=== PATIENT | male | born 1985 | race Caucasian/White ===

== ENCOUNTER 2020-02-29 23:03 | Emergency (ER) | payer MEDICAID ==
[2020-02-29] MEDS ORDERED: Sodium Chloride 0.9% 2,000 ML IV ONE (23:32)
--- NOTE | 2020-02-29 23:32 | EDM.PDOC ---
ED HPI GENERAL MEDICAL PROBLEM - General Chief Complaint: Diabetic Complaint Stated Complaint: DIABETIC, HIGH BLOOD SUGAR Time Seen by Provider: 02/29/20 23:04 - History of Present Illness INITIAL COMMENTS - FREE TEXT/NARRATIVE: HISTORY AND PHYSICAL: History of present illness: This 34-year-old male with past medical history of diabetes mellitus, obesity presents emergency department not taking his metformin for several weeks. He moved here from [place] and has not established primary care. He feels very weak and is having a high heart rate. He denies any fever but he does have a cough. No urinary symptoms other than polyuria. He does have polydipsia and polyphagia. He feels like it is hard to catch his breath at times and has to breathe quickly. He denies any other associated signs or symptoms. No other mo difying, aggravating or alleviating factors. Review of systems: A 10-point review of systems, other than pertinent positives and negatives as stated per HPI, is otherwise negative. Past medical history: As per history of present illness and as reviewed below otherwise noncontributory. Surgical history: As per history of present illness and as reviewed below otherwise noncontributory. Social history: No reported history of drug or alcohol abuse. Family history: As per history of present illness and as reviewed below otherwise noncontributory. Physical exam: VITAL SIGNS: Reviewed. GENERAL: Distress. Diaphoretic. Tachycardic. HEAD: No signs of head trauma. EYES: Pupils are equal. Extraocular motions intact. EARS: Hearing grossly intact. MOUTH: Oropharynx is normal. NECK: No adenopathy, no JVD. CHEST: Chest with clear breath sounds bilaterally. No wheezes, rales, or rhonchi. CARDIAC: Great. Regular rhythm. S1-S2 are present. No murmurs gallops or rubs. VASCULAR: Peripheral pulses normal and equal in all extremities. ABDOMEN: Soft, without detectable tenderness. No sign of distention. No rebound or guarding, and no masses palpated. MUSCULOSKELETAL: Good range of motion of all major joints. Extremities without clubbing, cyanosis or edema. NEUROLOGIC EXAM: Alert and oriented x 3. No focal sensory or motor deficits. Speech normal. Follows commands. PSYCHIATRIC: Mood normal. SKIN: No rash or lesions. Initial Differential Diagnosis & Plan: Metabolic derangement, DKA, hyperglycemia, sepsis I will provide the patient with IV fluids, check a lactate, take empiric blood cultures, chest x-ray, CBC, CMP, troponin, and magnesium levels. I will give IV fluids of 2 L and reevaluate. Definitive disposition and diagnosis as appropriate pending reevaluation and review of above. - Related Data Allergies Allergy/AdvReac Type Severity Reaction Status Date / Time No Known Allergies Allergy Verified 02/29/20 23:24 Home Meds: Home Meds metFORMIN [Glucophage XR] 500 mg PO BIDMEALS 30 Days #60 tab.er 03/01/20 [Rx] Past Medical History Musculoskeletal History: Reports: SLE Endocrine/Metabolic History: Reports: Diabetes, Type II - Infectious Disease History Infectious Disease History: Reports: Chicken Pox Social & Family History - Family History Family Medical History: Noncontributory - Caffeine Use Caffeine Use: Reports: Soda - Recreational Drug Use Recreational Drug Use: No ED ROS GENERAL - Review of Systems Review Of Systems: See Below (noted) ED EXAM GENERAL NO PERIP PULSE - Physical Exam Exam: See Below (noted) EKG INTERPRETATION EKG Interpretation Comments: 12 lead EKG interpretation Obtained: February 29, 2020 at 11:43 PM Rhythm: Sinus tachycardia Rate: 113 [place]: Right axis deviation Intervals: Normal ST/T Segments: No acute ischemic changes Interpretation: Sinus tachycardia with right axis deviation Course - Vital Signs Last Recorded V/S: Last Vital Signs Temp 96.6 F L 02/29/20 23:25 Pulse 115 H 02/29/20 23:25 Resp 20 02/29/20 23:25 BP 140/93 H 02/29/20 23:25 Pulse Ox 96 02/29/20 23:25 - Orders/Labs/Meds Orders: Active Orders 24 hr Category Date Time Status EKG 12 Lead [EKG Documentation Completion] [RC] STAT Care 02/29/20 23:28 Active COMPREHENSIVE METABOLIC PN,CMP [CHEM] Stat Lab 02/29/20 23:45 Results CULTURE BLOOD [BC] Stat Lab 02/29/20 23:45 Received CULTURE BLOOD [BC] Stat Lab 02/29/20 23:58 Received DRUG SCREEN, URINE [URCHEM] Stat Lab 02/29/20 23:28 Ordered ETOH [ETHANOL BLOOD MEDICAL] [CHEM] Stat Lab 02/29/20 23:45 Results MAGNESIUM [CHEM] Stat Lab 02/29/20 23:45 Results T4 FREE [CHEM] Stat Lab 02/29/20 23:45 Results TROPONIN I [CHEM] Stat Lab 02/29/20 23:45 Results TSH [CHEM] Stat Lab 02/29/20 23:45 Results UA RFX ROD AND CULT IF INDIC [URIN] Stat Lab 02/29/20 23:28 Ordered Magnesium Sulfate/Water [Magnesium Sulfate in Water Med 03/01/20 01:00 Active Premix] 2 gm in 50 ml IV ONETIME Blood Culture x2 Reflex Set [OM.PC] Stat Oth 02/29/20 23:32 Ordered Medication Orders Magnesium Sulfate (Magnesium Sulfate In Water Premix) 2 gm in 50 mls @ 50 mls/hr IV ONETIME ONE Stop: 03/01/20 01:59 Labs: Laboratory Tests 02/29/20 02/29/20 02/29/20 Range/Units 23:22 23:45 23:45 WBC 6.77 (4.0-11.0) K/uL RBC 5.15 (4.50-5.90) M/uL Hgb 16.1 (13.0-17.0) g/dL Hct 47.5 (38.0-50.0) % MCV 92.2 (80.0-98.0) fL MCH 31.3 (27.0-32.0) pg MCHC 33.9 (31.0-37.0) g/dL RDW Std Deviation 42.2 (28.0-62.0) fl RDW Coeff of Ray 13 (11.0-15.0) % Plt Count 167 (150-400) K/uL MPV 10.40 (7.40-12.00) fL Neut % (Auto) 75.1 (48.0-80.0) % Lymph % (Auto) 18.3 (16.0-40.0) % [place] % (Auto) 5.2 (0.0-15.0) % Eos % (Auto) 1.3 (0.0-7.0) % Baso % (Auto) 0.1 (0.0-1.5) % Neut # (Auto) 5.1 (1.4-5.7) K/uL Lymph # (Auto) 1.2 (0.6-2.4) K/uL [place] # (Auto) 0.4 (0.0-0.8) K/uL Eos # (Auto) 0.1 (0.0-0.7) K/uL Baso # (Auto) 0.0 (0.0-0.1) K/uL Nucleated RBC % 0.0 /100WBC Nucleated RBCs # 0 K/uL VBG pH 7.37 (7.31-7.41) VBG pCO2 49 H (35-45) mmHG VBG pO2 37 (30-40) mmHG VBG HCO3 28 (22-30) mEq/L VBG Total CO2 25 L (41-51) mmol/L VBG Base Excess 1.9 (-3.0-3.0) Lactate (0.20-2.00) mmol/L Sodium (136-148) mmol/L Potassium (3.5-5.1) mmol/L Chloride (98-107) mmol/L Carbon Dioxide (21.0-32.0) mmol/L BUN (7.0-18.0) mg/dL Creatinine (0.8-1.3) mg/dL Est Cr Clr Drug Dosing mL/min Estimated GFR (MDRD) ml/min Glucose (74-106) mg/dL POC Glucose 378 H (60-110) mg/dL Calcium (8.5-10.1) mg/dL Magnesium (1.8-2.4) mg/dL Total Bilirubin (0.2-1.0) mg/dL ALT (14-63) IU/L Alkaline Phosphatase (46-116) U/L Troponin I (0.000-0.056) ng/mL Total Protein (6.4-8.2) g/dL Albumin (3.4-5.0) g/dL Globulin (2.6-4.0) g/dL Albumin/Globulin Ratio (0.9-1.6) Free T4 (0.76-1.46) ng/dL TSH 3rd Generation (0.36-3.74) uIU/mL Ethyl Alcohol mg/dL 02/29/20 02/29/20 Range/Units 23:45 23:45 WBC (4.0-11.0) K/uL RBC (4.50-5.90) M/uL Hgb (13.0-17.0) g/dL Hct (38.0-50.0) % MCV (80.0-98.0) fL MCH (27.0-32.0) pg MCHC (31.0-37.0) g/dL RDW Std Deviation (28.0-62.0) fl RDW Coeff of Ray (11.0-15.0) % Plt Count (150-400) K/uL MPV (7.40-12.00) fL Neut % (Auto) (48.0-80.0) % Lymph % (Auto) (16.0-40.0) % [place] % (Auto) (0.0-15.0) % Eos % (Auto) (0.0-7.0) % Baso % (Auto) (0.0-1.5) % Neut # (Auto) (1.4-5.7) K/uL Lymph # (Auto) (0.6-2.4) K/uL [place] # (Auto) (0.0-0.8) K/uL Eos # (Auto) (0.0-0.7) K/uL Baso # (Auto) (0.0-0.1) K/uL Nucleated RBC % /100WBC Nucleated RBCs # K/uL VBG pH (7.31-7.41) VBG pCO2 (35-45) mmHG VBG pO2 (30-40) mmHG VBG HCO3 (22-30) mEq/L VBG Total CO2 (41-51) mmol/L VBG Base Excess (-3.0-3.0) Lactate 1.4 (0.20-2.00) mmol/L Sodium 131 L (136-148) mmol/L Potassium 4.0 (3.5-5.1) mmol/L Chloride 96 L (98-107) mmol/L Carbon Dioxide 28.0 (21.0-32.0) mmol/L BUN 7 (7.0-18.0) mg/dL Creatinine 1.0 (0.8-1.3) mg/dL Est Cr Clr Drug Dosing 98.23 mL/min Estimated GFR (MDRD) > 60.0 ml/min Glucose 370 H (74-106) mg/dL POC Glucose (60-110) mg/dL Calcium 8.1 L (8.5-10.1) mg/dL Magnesium 1.6 L (1.8-2.4) mg/dL Total Bilirubin 0.6 (0.2-1.0) mg/dL ALT 87 H (14-63) IU/L Alkaline Phosphatase 134 H (46-116) U/L Troponin I < 0.050 (0.000-0.056) ng/mL Total Protein 7.0 (6.4-8.2) g/dL Albumin 3.5 (3.4-5.0) g/dL Globulin 3.5 (2.6-4.0) g/dL Albumin/Globulin Ratio 1.0 (0.9-1.6) Free T4 1.11 (0.76-1.46) ng/dL TSH 3rd Generation 3.64 (0.36-3.74) uIU/mL Ethyl Alcohol < 3.0 mg/dL Meds: Medications Generic Name Dose Route Start Last Admin Trade Name Freq PRN Reason Stop Dose Admin Magnesium Sulfate 2 gm in 50 mls @ 50 mls/hr 03/01/20 01:00 Magnesium Sulfate In Water Premix IV 03/01/20 01:59 ONETIME ONE Discontinued Medications Generic Name Dose Route Start Last Admin Trade Name Freq PRN Reason Stop Dose Admin Calcium Gluconate 1 gm 03/01/20 00:42 Calcium Gluconate IV 03/01/20 00:43 ONETIME ONE Sodium Chloride 2,000 mls @ 2,000 mls/hr 02/29/20 23:32 02/29/20 23:46 Normal Saline IV 03/01/20 00:31 2,000 mls/hr .BOLUS ONE Administration Ceftriaxone Sodium/Dextrose 2 50 mls @ 100 mls/hr 02/29/20 23:33 02/29/20 23:47 gm/ Premix IV 03/01/20 00:02 100 mls/hr ONETIME ONE Administration - Re-Assessments/Exams Free Text/Narrative Re-Assessment/Exam: 03/01/20 01:03 Significant improvement. Electrolytes replaced. Metformin prescribed. No DKA present. No indication of infection. Given these findings we will discharge him home with follow-up to our clinics for primary care. Patient should return if he develops fever worsening. My diagnostic impression: 1. Nonketotic hyperglycemic syndrome 2. Uncontrolled type 2 diabetes 3. Hypomagnesemia 4. Hypocalcemia 5. Dehydration The patient has clinical signs and symptoms of dehydration requiring IV hydration History (indicate if present with "X" ) x Inadequate Oral Intake _unable to take PO / persistent vomiting _needs to remain NPO due to possibility of a surgical condition x Abnormal fluid losses Physical Examination (indicate if present with "X" ) _altered Mental Status x HR >100 or elevated HR x Dry mucous membranes _appears septic Testing (indicate if present with "X" ) _elevated BUN _elevated Cr _Na >150 _elevated urine specific gravity _hemoconcentration (elevated Hgb/Hct) _elevated lactate x Elevated Glucose level Departure - Departure Time of Disposition: 01:05 Disposition: Home, Self-Care 01 Clinical Impression: Uncontrolled diabetes mellitus, Dehydration, Hypomagnesemia, Hypocalcemia - Discharge Information *PRESCRIPTION DRUG MONITORING PROGRAM REVIEWED*: Not Applicable *COPY OF PRESCRIPTION DRUG MONITORING REPORT IN PATIENT JANETH: Not Applicable Prescriptions: metFORMIN [Glucophage XR] 500 mg PO BIDMEALS 30 Days #60 tab.er Instructions: Hypomagnesemia, Hypocalcemia, Adult, Dehydration, Adult, [id number], Type 2 Diabetes Mellitus, Self Care, Adult, [id number], Preventing Diabetes Mellitus Complications, Type 2 Diabetes Mellitus, Diagnosis, Adult, [id number], Blood Glucose Monitoring, Adult, Diabetes Mellitus and Exercise Referrals: PCP,None [Primary Care Provider] - Forms: ED Department Discharge Additional Instructions: The following information is given to patients seen in the emergency department who are being discharged to home. This information is to outline your options for follow-up care. We provide all patients seen in our emergency department with a follow-up referral. The need for follow-up, as well as the timing and circumstances, are variable depending upon the specifics of your emergency department visit. If you don't have a primary care physician on staff, we will provide you with a referral. We always advise you to contact your personal physician following an emergency department visit to inform them of the circumstance of the visit and for follow-up with them and/or the need for any referrals to a consulting specialist. The emergency department will also refer you to a specialist when appropriate. This referral assures that you have the opportunity for follow-up care with a specialist. All of these measure are taken in an effort to provide you with optimal care, which includes your follow-up. Thank you for coming to the [facility] urgency department for your care today. It was Dr. Fried's pleasure to take care of you. Josefina [facility] [address] [place] [address] [facility] [address] [place] [address] He had diabetes mellitus. This was a previous diagnosis for you. Please take the metformin as prescribed. Return to emergency department if you have worsening especially fever, chest pain, shortness of breath weakness, cramps, or any other symptoms you are concerned about. Please follow-up with the clinics as you will require further care for your diabetes. You were significantly d ehydrated and required replacement of your electrolytes including magnesium and calcium. Please return for any other concerns. We are always happy to see you. Under all circumstances we always encourage you to contact your private physician who remains a resource for coordinating your care. When calling for follow-up care, please make the office aware that this follow-up is from your recent emergency room visit. If for any reason you are refused follow-up, please contact the [facility] Emergency Department at and asked to speak to the emergency department charge nurse. Sepsis Event Note (ED) - Evaluation Sepsis Screening Result: No Definite Risk - Focused Exam Vital Signs: Vital Signs Temp Pulse Resp BP Pulse Ox 02/29/20 23:25 96.6 F L 115 H 20 140/93 H 96 - My Orders Last 24 Hours: My Active Orders 02/29/20 23:28 EKG 12 Lead [EKG Documentation Completion] [RC] STAT DRUG SCREEN, URINE [URCHEM] Stat UA RFX ROD AND CULT IF INDIC [URIN] Stat 02/29/20 23:32 Blood Culture x2 Reflex Set [OM.PC] Stat 02/29/20 23:45 COMPREHENSIVE METABOLIC PN,CMP [CHEM] Stat CULTURE BLOOD [BC] Stat ETOH [ETHANOL BLOOD MEDICAL] [CHEM] Stat MAGNESIUM [CHEM] Stat T4 FREE [CHEM] Stat TROPONIN I [CHEM] Stat TSH [CHEM] Stat 02/29/20 23:58 CULTURE BLOOD [BC] Stat 03/01/20 01:00 Magnesium Sulfate/Water [Magnesium Sulfate in Water Premix] 2 gm in 50 ml IV ONETIME - Assessment/Plan Last 24 Hours: My Active Orders 02/29/20 23:28 EKG 12 Lead [EKG Documentation Completion] [RC] STAT DRUG SCREEN, URINE [URCHEM] Stat UA RFX ROD AND CULT IF INDIC [URIN] Stat 02/29/20 23:32 Blood Culture x2 Reflex Set [OM.PC] Stat 02/29/20 23:45 COMPREHENSIVE METABOLIC PN,CMP [CHEM] Stat CULTURE BLOOD [BC] Stat ETOH [ETHANOL BLOOD MEDICAL] [CHEM] Stat MAGNESIUM [CHEM] Stat T4 FREE [CHEM] Stat TROPONIN I [CHEM] Stat TSH [CHEM] Stat 02/29/20 23:58 CULTURE BLOOD [BC] Stat 03/01/20 01:00 Magnesium Sulfate/Water [Magnesium Sulfate in Water Premix] 2 gm in 50 ml IV ONETIME
[2020-02-29] MEDS ORDERED: cefTRIAXone 2 GM in Premix Bag 1 BAG IV ONE (23:33)
[2020-03-01 00:37] LABS: BLOOD UREA NITROGEN,BUN 7 mg/dL (7.0-18.0); CHLORIDE,CL 96 mmol/L (98-107); GLUCOSE RANDOM 370 mg/dL (74-106); SODIUM,NA 131 mmol/L (136-148)
[2020-03-01] MEDS ORDERED: Calcium Gluconate 10% 1 GM/10 ML SDV IV ONE (00:42)
[2020-03-01] MEDS ORDERED: Magnesium Sulfate (4.06 MEQ/ML) 5 GM/10 ML SDV IV ONE (00:43)
[2020-03-01] MEDS ORDERED: Magnesium Sulfate/Water 2 GM/50 ML BAG IV ONE (01:00)
== END 2020-03-01 02:35 | disposition home or self-care (01) ==
LOC: MW.ED 23:03
DX: E11.65 Type 2 diabetes mellitus with hyperglycemia (principal); E86.0 Dehydration; E83.42 Hypomagnesemia; E83.51 Hypocalcemia; E66.9 Obesity, unspecified; Z68.41 Body mass index [BMI] 40.0-44.9, adult; Z79.84 Long term (current) use of oral hypoglycemic drugs
CPT/HCPCS: 36415; 80053; 80305; 80307; 81003; 82803; 82962; 83605; 83735; 84439; 84443; 84484; 85025; 87040; 93005; 96361; 96365; 96367; 96375; 99285; J0610; J0696; J3475; J7030; 93010; 99283

== ENCOUNTER 2020-03-02 19:59 | Observation (INO) | payer MEDICAID, OTHER ==
[2020-03-02] MEDS ORDERED: Sodium Chloride 0.9% 1,000 ML IV ONE ×4 (20:15→23:54)
--- NOTE | 2020-03-02 20:26 | EDM.PDOC ---
ED HPI GENERAL MEDICAL PROBLEM - General Chief Complaint: Diabetic Complaint Stated Complaint: STOMACH PAIN, WEAK Time Seen by Provider: 03/02/20 20:12 Source of Information: Reports: Patient History Limitations: Reports: No Limitations - History of Present Illness INITIAL COMMENTS - FREE TEXT/NARRATIVE: HISTORY AND PHYSICAL: History of present illness: Patient is a 34-year-old male who presents to the emergency room with complaints of decreased appetite, cough, generalized abdominal pain and weakness. Patient is a type II diabetic and does take metformin on a daily basis. States over the past few days he has noticed he is unable to taste his food, has had a decreased appetite and he is concerned he is dehydrated as he does not want to eat or drink. He has noticed a dry nonproductive cough with subjective fever. States he has generalized abdominal pain although it is not tender. Patient denies any fever, chills, headache, change in vision, syncope or near syncope. Denies any chest pain, back pain, shortness of breath or cough. Denies any abdominal pain, nausea, vomiting, diarrhea, constipation or dysuria. Has not noted any blood in urine or stool. Patient has been eating and drinking appropriately. Review of systems: As per history of present illness and below otherwise all systems reviewed and negative. Past medical history: As per history of present illness and as reviewed below otherwise noncontributory. Surgical history: As per history of present illness and as reviewed below otherwise noncontributory. Social history: See social history for further information Family history: As per history of present illness and as reviewed below otherwise noncontributory. Physical exam: General: Well developed and well nourished. Alert and orientated x 3. Nontoxic in appearance and in no acute distress. Vital signs are stable and have been reviewed by me. Nursing notes were reviewed. HEENT: Atraumatic, normocephalic, pupils equal and reactive bilaterally, negative for conjunctival pallor or scleral icterus, mucous membranes moist, TMs normal bilaterally, throat clear, neck supple, nontender, trachea midline. No drooling or trismus noted. No meningeal signs. No hot potato voice noted. Lungs: Clear to auscultation, breath sounds equal bilaterally, chest nontender. Normal work of breathing, no accessory muscles used. Heart: S1S2, regular rate and rhythm without overt murmur Abdomen: Soft, nondistended, nontender. Negative for masses or hepatosplenomegaly. Negative for costovertebral tenderness. Pelvis: Stable nontender. Skin: Intact, warm, dry. No lesions or rashes noted. Hematologic: No petechiae or purpra. Mucosa appropriate color and normal nail bed color and refill. Extremities: Atraumatic, moves all extremities per self without difficulty or deficits, negative for cords or calf pain. Neurovascular unremarkable. Neuro: Awake, alert, oriented. Cranial nerves II through XII unremarkable. Cerebellum unremarkable. Motor and sensory unremarkable throughout. Exam nonfocal. Psychiatric: Mood and affect are appropriate. Normal thought process. Answering questions appropriately. Notes: Patient does appear to be slightly dehydrated, liter bolus has been given while here. He did test positive for COVID-19. He is now drinking fluids on his own without any difficulty. I did add a d-dimer as the patient is slightly tach ycardic although besides the cough has not been hypoxic or complaining of any shortness of breath/chest pain. Dr Dhillon will follow patient's CT chest, as his D.Dimer is elevated and he continues to be tachycardic. Diagnostics: CBC, CMP, chest x-ray, lactate, UA, COVID-19 Therapeutics: IV fluid Prescription: None Impression: COVID-19 Plan: Definitive disposition and diagnosis as appropriate pending reevaluation and review of above. - Related Data Allergies Allergy/AdvReac Type Severity Reaction Status Date / Time No Known Allergies Allergy Verified 03/03/20 04:17 Home Meds: Home Meds metFORMIN [Glucophage XR] 500 mg PO BIDMEALS 30 Days #60 tab.er 03/01/20 [Rx] Past Medical History Musculoskeletal History: Reports: SLE Endocrine/Metabolic History: Reports: Diabetes, Type II - Infectious Disease History Infectious Disease History: Reports: Chicken Pox Social & Family History - Family History Family Medical History: Noncontributory - Caffeine Use Caffeine Use: Reports: Soda ED ROS GENERAL - Review of Systems Review Of Systems: Comprehensive ROS is negative, except as noted in HPI. ED EXAM GENERAL NO PERIP PULSE - Physical Exam Exam: See Below (See dictation) Course - Vital Signs Last Recorded V/S: Last Vital Signs Temp 98.6 F 03/03/20 08:40 Pulse 114 H 03/03/20 08:40 Resp 16 03/03/20 08:40 BP 129/76 03/03/20 08:40 Pulse Ox 93 L 03/03/20 08:40 - Orders/Labs/Meds Orders: Active Orders 24 hr Category Date Time Status Blood Glucose Check, Bedside [] ONETIME Care 03/02/20 20:07 Active EKG Documentation Completion [RC] STAT Care 03/02/20 20:15 Active CORONAVIRUS COVID-19 PCR PHL Stat Lab 03/02/20 21:38 Ordered Medication Orders Acetaminophen (Tylenol Extra Strength) 500 mg PO Q6H PRN PRN Reason: Pain Albuterol/Ipratropium (Combivent Respimat) 0 gm INH Q4H PRN PRN Reason: Shortness of Breath Lactated Ringer's (Ringers, Lactated) 1,000 mls @ 125 mls/hr IV ASDIRECTED [facility] Last Admin: 03/03/20 10:28 Dose: 125 mls/hr Documented by: Infusion: 03/03/20 09:34 Dose: 125 mls/hr Documented by: Admin: 03/03/20 01:34 Dose: 125 mls/hr Documented by: MICHELLE Pantoprazole Sodium 40 mg/ (Sodium Chloride) 10 mls @ 300 mls/hr IV DAILY [facility] Last Admin: 03/03/20 01:33 Dose: 300 mls/hr Documented by: MICHELLE Magnesium Sulfate 4 gm/ Premix 100 mls @ 33.333 mls/hr IV ONETIME ONE Stop: 03/03/20 11:49 Last Admin: 03/03/20 09:22 Dose: 33.333 mls/hr Documented by: OSEI Insulin Aspart (Novolog) 0 unit SUBCUT TIDAC [facility]; Protocol Last Admin: 03/03/20 07:28 Dose: 6 units Documented by: MICHELLE Ondansetron HCl (Zofran) 4 mg IVPUSH Q4H PRN PRN Reason: Nausea/Vomiting Sodium Phosphate (Neutra-Phos) 250 mg PO QID [facility] Stop: 03/04/20 09:00 Labs: Laboratory Tests 03/02/20 03/02/20 03/02/20 Range/Units 20:11 20:15 20:15 WBC 6.76 (4.0-11.0) K/uL RBC 5.18 (4.50-5.90) M/uL Hgb 16.2 (13.0-17.0) g/dL Hct 47.4 (38.0-50.0) % MCV 91.5 (80.0-98.0) fL MCH 31.3 (27.0-32.0) pg MCHC 34.2 (31.0-37.0) g/dL RDW Std Deviation 42.0 (28.0-62.0) fl RDW Coeff of Ray 12 (11.0-15.0) % Plt Count 126 L (150-400) K/uL MPV 9.90 (7.40-12.00) fL Neut % (Auto) 80.8 H (48.0-80.0) % Lymph % (Auto) 14.2 L (16.0-40.0) % Bucks % (Auto) 4.6 (0.0-15.0) % Eos % (Auto) 0.3 (0.0-7.0) % Baso % (Auto) 0.1 (0.0-1.5) % Neut # (Auto) 5.5 (1.4-5.7) K/uL Lymph # (Auto) 1.0 (0.6-2.4) K/uL Bucks # (Auto) 0.3 (0.0-0.8) K/uL Eos # (Auto) 0.0 (0.0-0.7) K/uL Baso # (Auto) 0.0 (0.0-0.1) K/uL Nucleated RBC % 0.0 /100WBC Nucleated RBCs # 0 K/uL D-Dimer, Quantitative (0.0-0.50) mg/L FEU Lactate (0.20-2.00) mmol/L Sodium 131 L (136-148) mmol/L Potassium 3.9 (3.5-5.1) mmol/L Chloride 96 L (98-107) mmol/L Carbon Dioxide 26.3 (21.0-32.0) mmol/L BUN 13 (7.0-18.0) mg/dL Creatinine 1.1 (0.8-1.3) mg/dL Est Cr Clr Drug Dosing 89.30 mL/min Estimated GFR (MDRD) > 60.0 ml/min Glucose 327 H (74-106) mg/dL POC Glucose 298 H (60-110) mg/dL Hemoglobin A1c (4.5-6.2) % Calcium 8.1 L (8.5-10.1) mg/dL Total Bilirubin 0.5 (0.2-1.0) mg/dL AST 48 H (15-37) IU/L ALT 78 H (14-63) IU/L Alkaline Phosphatase 124 H (46-116) U/L Total Protein 7.2 (6.4-8.2) g/dL Albumin 3.4 (3.4-5.0) g/dL Globulin 3.8 (2.6-4.0) g/dL Albumin/Globulin Ratio 0.9 (0.9-1.6) Urine Color Urine Appearance Urine pH (5.0-8.0) Ur Specific [place] (1.001-1.035) Urine Protein (NEGATIVE) mg/dL Urine Glucose (UA) (NEGATIVE) mg/dL Urine Ketones (NEGATIVE) mg/dL Urine Occult Blood (NEGATIVE) Urine Nitrite (NEGATIVE) Urine Bilirubin (NEGATIVE) Urine Urobilinogen (<2.0) EU/dL Ur Leukocyte Esterase (NEGATIVE) Urine RBC (0-2/HPF) Urine WBC (0-5/HPF) Ur Epithelial Cells (NONE-FEW) Urine Bacteria (NEGATIVE) SARS CoV-2 RNA Rapid PEYTON (NEGATIVE) 03/02/20 03/02/20 03/02/20 Range/Units 20:15 20:15 20:28 WBC (4.0-11.0) K/uL RBC (4.50-5.90) M/uL Hgb (13.0-17.0) g/dL Hct (38.0-50.0) % MCV (80.0-98.0) fL MCH (27.0-32.0) pg MCHC (31.0-37.0) g/dL RDW Std Deviation (28.0-62.0) fl RDW Coeff of Ray (11.0-15.0) % Plt Count (150-400) K/uL MPV (7.40-12.00) fL Neut % (Auto) (48.0-80.0) % Lymph % (Auto) (16.0-40.0) % Bucks % (Auto) (0.0-15.0) % Eos % (Auto) (0.0-7.0) % Baso % (Auto) (0.0-1.5) % Neut # (Auto) (1.4-5.7) K/uL Lymph # (Auto) (0.6-2.4) K/uL Bucks # (Auto) (0.0-0.8) K/uL Eos # (Auto) (0.0-0.7) K/uL Baso # (Auto) (0.0-0.1) K/uL Nucleated RBC % /100WBC Nucleated RBCs # K/uL D-Dimer, Quantitative 0.66 H (0.0-0.50) mg/L FEU Lactate (0.20-2.00) mmol/L Sodium (136-148) mmol/L Potassium (3.5-5.1) mmol/L Chloride (98-107) mmol/L Carbon Dioxide (21.0-32.0) mmol/L BUN (7.0-18.0) mg/dL Creatinine (0.8-1.3) mg/dL Est Cr Clr Drug Dosing mL/min Estimated GFR (MDRD) ml/min Glucose (74-106) mg/dL POC Glucose (60-110) mg/dL Hemoglobin A1c 13.3 H (4.5-6.2) % Calcium (8.5-10.1) mg/dL Total Bilirubin (0.2-1.0) mg/dL AST (15-37) IU/L ALT (14-63) IU/L Alkaline Phosphatase (46-116) U/L Total Protein (6.4-8.2) g/dL Albumin (3.4-5.0) g/dL Globulin (2.6-4.0) g/dL Albumin/Globulin Ratio (0.9-1.6) Urine Color YELLOW Urine Appearance CLEAR Urine pH 5.5 (5.0-8.0) Ur Specific [place] >= 1.030 (1.001-1.035) Urine Protein 30 H (NEGATIVE) mg/dL Urine Glucose (UA) 500 H (NEGATIVE) mg/dL Urine Ketones 15 H (NEGATIVE) mg/dL Urine Occult Blood TRACE-INTACT H (NEGATIVE) Urine Nitrite NEGATIVE (NEGATIVE) Urine Bilirubin NEGATIVE (NEGATIVE) Urine Urobilinogen 0.2 (<2.0) EU/dL Ur Leukocyte Esterase NEGATIVE (NEGATIVE) Urine RBC 0-2 (0-2/HPF) Urine WBC 0-1 (0-5/HPF) Ur Epithelial Cells RARE (NONE-FEW) Urine Bacteria RARE (NEGATIVE) SARS CoV-2 RNA Rapid [place] (NEGATIVE) 03/02/20 03/02/20 Range/Units 20:30 20:49 WBC (4.0-11.0) K/uL RBC (4.50-5.90) M/uL Hgb (13.0-17.0) g/dL Hct (38.0-50.0) % MCV (80.0-98.0) fL MCH (27.0-32.0) pg MCHC (31.0-37.0) g/dL RDW Std Deviation (28.0-62.0) fl RDW Coeff of Ray (11.0-15.0) % Plt Count (150-400) K/uL MPV (7.40-12.00) fL Neut % (Auto) (48.0-80.0) % Lymph % (Auto) (16.0-40.0) % Bucks % (Auto) (0.0-15.0) % Eos % (Auto) (0.0-7.0) % Baso % (Auto) (0.0-1.5) % Neut # (Auto) (1.4-5.7) K/uL Lymph # (Auto) (0.6-2.4) K/uL Bucks # (Auto) (0.0-0.8) K/uL Eos # (Auto) (0.0-0.7) K/uL Baso # (Auto) (0.0-0.1) K/uL Nucleated RBC % /100WBC Nucleated RBCs # K/uL D-Dimer, Quantitative (0.0-0.50) mg/L FEU Lactate 1.5 (0.20-2.00) mmol/L Sodium (136-148) mmol/L Potassium (3.5-5.1) mmol/L Chloride (98-107) mmol/L Carbon Dioxide (21.0-32.0) mmol/L BUN (7.0-18.0) mg/dL Creatinine (0.8-1.3) mg/dL Est Cr Clr Drug Dosing mL/min Estimated GFR (MDRD) ml/min Glucose (74-106) mg/dL POC Glucose (60-110) mg/dL Hemoglobin A1c (4.5-6.2) % Calcium (8.5-10.1) mg/dL Total Bilirubin (0.2-1.0) mg/dL AST (15-37) IU/L ALT (14-63) IU/L Alkaline Phosphatase (46-116) U/L Total Protein (6.4-8.2) g/dL Albumin (3.4-5.0) g/dL Globulin (2.6-4.0) g/dL Albumin/Globulin Ratio (0.9-1.6) Urine Color Urine Appearance Urine pH (5.0-8.0) Ur Specific [place] (1.001-1.035) Urine Protein (NEGATIVE) mg/dL Urine Glucose (UA) (NEGATIVE) mg/dL Urine Ketones (NEGATIVE) mg/dL Urine Occult Blood (NEGATIVE) Urine Nitrite (NEGATIVE) Urine Bilirubin (NEGATIVE) Urine Urobilinogen (<2.0) EU/dL Ur Leukocyte Esterase (NEGATIVE) Urine RBC (0-2/HPF) Urine WBC (0-5/HPF) Ur Epithelial Cells (NONE-FEW) Urine Bacteria (NEGATIVE) SARS CoV-2 RNA Rapid PEYTON POSITIVE H (NEGATIVE) Meds: Medications Generic Name Dose Route Start Last Admin Trade Name Freq PRN Reason Stop Dose Admin Acetaminophen 500 mg 03/03/20 00:53 Tylenol Extra Strength PO Q6H PRN Pain Albuterol/Ipratropium 0 gm 03/03/20 00:52 Combivent Respimat INH Q4H PRN Shortness of Breath Lactated Ringer's 1,000 mls @ 125 mls/hr 03/03/20 01:00 03/03/20 10:28 Ringers, Lactated IV 125 mls/hr ASDIRECTED PAPI Administration Pantoprazole Sodium 40 mg/ 10 mls @ 300 mls/hr 03/03/20 01:00 03/03/20 01:33 Sodium Chloride IV 300 mls/hr DAILY [facility] Administration Magnesium Sulfate 4 gm/ Premix 100 mls @ 33.333 mls/hr 03/03/20 08:50 03/03/20 09:22 IV 03/03/20 11:49 33.333 mls/hr ONETIME ONE Administration Insulin Aspart 0 unit 03/03/20 07:30 03/03/20 07:28 Novolog SUBCUT 6 units TIDAC [facility] Administration Protocol Ondansetron HCl 4 mg 03/03/20 00:47 Zofran IVPUSH Q4H PRN Nausea/Vomiting Sodium Phosphate 250 mg 03/03/20 12:00 Neutra-Phos PO 03/04/20 09:00 QID PAPI Discontinued Medications Generic Name Dose Route Start Last Admin Trade Name Freq PRN Reason Stop Dose Admin Sodium Chloride 1,000 mls @ 999 mls/hr 03/02/20 20:15 03/02/20 20:18 Normal Saline IV 03/02/20 21:15 999 mls/hr STAT ONE Administration Sodium Chloride 1,000 mls @ 999 mls/hr 03/02/20 21:03 03/03/20 03:58 Normal Saline IV 03/02/20 22:03 Not Given STAT ONE Sodium Chloride 1,000 mls @ 999 mls/hr 03/02/20 22:19 03/02/20 22:50 Normal Saline IV 03/02/20 23:19 999 mls/hr .Bolus ONE Administration Sodium Chloride 1,000 mls @ 999 mls/hr 03/02/20 23:54 03/03/20 00:01 Normal Saline IV 03/03/20 00:54 999 mls/hr .Bolus ONE Administration Lactated Ringer's 1,000 mls @ 999 mls/hr 03/03/20 08:49 03/03/20 09:21 Ringers, Lactated IV 03/03/20 09:49 999 mls/hr .BOLUS ONE Administration Iopamidol 100 ml 03/02/20 22:28 03/02/20 22:29 Isovue-370 (76%) IVPUSH 03/02/20 22:29 100 ml ONETIME STA Administration Departure - Departure Time of Disposition: 21:21 Disposition: Refer to Observation Clinical Impression: COVID-19 - Discharge Information Sepsis Event Note (ED) - Evaluation Sepsis Screening Result: No Definite Risk - Focused Exam Vital Signs: Vital Signs Pulse BP Pulse Ox 03/03/20 00:09 110 H 159/99 H 97 - My Orders Last 24 Hours: My Active Orders 03/02/20 20:15 EKG Documentation Completion [RC] STAT 03/02/20 21:38 CORONAVIRUS COVID-19 PCR PHL Stat - Assessment/Plan Last 24 Hours: My Active Orders 03/02/20 20:15 EKG Documentation Completion [RC] STAT 03/02/20 21:38 CORONAVIRUS COVID-19 PCR PHL Stat
[2020-03-02 20:49] LABS: BLOOD UREA NITROGEN,BUN 13 mg/dL (7.0-18.0); CARBON DIOXIDE,CO2 26.3 mmol/L (21.0-32.0); CHLORIDE,CL 96 mmol/L (98-107); GLUCOSE RANDOM 327 mg/dL (74-106); POTASSIUM,K 3.9 mmol/L (3.5-5.1); SODIUM,NA 131 mmol/L (136-148)
--- NOTE | 2020-03-02 20:50 | CR ---
INDICATION: pain/SOB TECHNIQUE: Chest 1 view. COMPARISON: None. FINDINGS: Cardiovascular and mediastinum: Heart size and vasculature are normal in caliber and appearance. Mediastinum is within normal limits. Lungs and pleural space: Lungs are clear. No sign of infiltrate or mass. No sign of pleural effusion. No pneumothorax. Bones and soft tissues: No significant findings. IMPRESSION: Unremarkable chest. Dictated by: Frandy Negron MD @ 03/02/2020 20:47:45 (Electronically Signed)
[2020-03-02 21:54] LABS: HEMOGLOBIN A1C 13.3 % (4.5-6.2)
[2020-03-02] MEDS ORDERED: Iopamidol 755 Mg/ML 100 ML Bottle IVPUSH STA (22:28)
--- NOTE | 2020-03-02 22:43 | CT ---
INDICATION: Elevated D-dimer, tachycardia TECHNIQUE: CT chest pulmonary angiogram acquired with IV contrast. 75 cc Isovue 370 COMPARISON: None FINDINGS: Cardiovascular structures: Normal vascular enhancement of the pulmonary arteries, no sign of pulmonary embolism. Heart size is normal. No sign of aneurysm or dissection in the thoracic aorta. Mediastinum and salud: No mass or adenopathy. Lungs: Bilateral round like airspace o opacities/areas of ground-glass appearance. COVID related illness cannot be excluded. Pleura and pericardium: No effusions. Chest wall and axilla: No mass or adenopathy. Bones: No significant findings. Upper abdomen: Hepatomegaly with hepatic steatosis. Splenomegaly. IMPRESSION: No evidence for pulmonary embolus. Bilateral round like airspace opacities/areas of ground-glass appearance. Cover related ileus cannot be excluded. Hepatosplenomegaly. Hepatic steatosis. Please note that all CT scans at this facility use dose modulation, iterative reconstruction, and/or weight-based dosing when appropriate to reduce radiation dose to as low as reasonably achievable. Dictated by Frandy Negron MD @ Mar 02 2020 10:41PM Signed by Dr. Frandy Negron @ Mar 02 2020 10:41PM
[2020-03-03] MEDS ORDERED: Ondansetron 4 MG/2 ML SDV IVPUSH PRN (00:47)
[2020-03-03] MEDS ORDERED: Albuterol/Ipratropium 4 GM Inhalation Spray INH PRN (00:52)
[2020-03-03] MEDS ORDERED: Acetaminophen 500 MG Tab PO PRN (00:53)
[2020-03-03] MEDS ORDERED: Pantoprazole 40 MG in Sodium Chloride 0.9% 10 ML IV SCH (01:00)
--- NOTE | 2020-03-03 01:24 | PCM.SN.2 ---
- Free Text/Narrative Note: Patient was signed out to me at 10 PM by Imani Marley pending CT with pulmonary embolism protocol for pulmonary embolism. I did evaluate the patient at this time the patient was tachycardic on the monitor but was saturating appropriately, was not tachypneic and speaking full sentences. I discussed with the patient at this time that disposition is pending CT PE and improvement in his tachycardia. The radiological images were viewed by myself along with reading the report from the radiologist. CT thorax for pulmonary embolism protocol did not reveal any evidence of pulmonary embolism. There is bilateral round like airspace opacities and areas of groundglass appearance. There is hepatosplenomegaly, hepatic steatosis. After additional IV fluid boluses, the patient's heart rate continued to maintain in the 1 10-1 12 range. Given the persistent tachycardia and the patient being coronavirus positive I did discuss at this time that I like to admit him to the hospital. We did discuss the results of his CT scan. He was amenable to admission at this time. I contacted Dr. Leiva who accept the patient for telemetry observation. DISPOSITION: Patient was admitted to telemetry observation in stable condition CONDITION: Fair PROCEDURES: None FINAL IMPRESSION(S)/DIAGNOSES: 1. Acute uncontrolled diabetes mellitus 2. Acute hyperglycemia 3. Acute tachycardia likely secondary to coronavirus 4. Acute coronavirus Farzad Dhillon M.D.
--- NOTE | 2020-03-03 01:27 | PCM.SN.2 ---
EKG INTERPRETATION EKG Date: 03/02/20 Time: 20:26 Rhythm: NSR Rate (Beats/Min): 116 [place]: Normal P-Wave: Present QRS: Normal ST-T: Normal QT: Normal Comparison: No Change (02/29/2020) EKG Interpretation Comments: Sinus Tachycardia
[2020-03-03] MEDS: Lactated Ringers 1,000 ML IV SCH ×2 (01:34→10:28)
[2020-03-03 06:36] LABS: BLOOD UREA NITROGEN,BUN 10 mg/dL (7.0-18.0); CARBON DIOXIDE,CO2 23.1 mmol/L (21.0-32.0); CHLORIDE,CL 100 mmol/L (98-107); GLUCOSE RANDOM 322 mg/dL (74-106); POTASSIUM,K 4.1 mmol/L (3.5-5.1); SODIUM,NA 133 mmol/L (136-148)
[2020-03-03] MEDS: Insulin Aspart 100 Units/ML 3 ML Pen SUBCUT SCH ×2 (07:28→12:44)
--- NOTE | 2020-03-03 08:48 | PCM.HP.2 ---
H&P History of Present Illness - General Date of Service: 03/03/20 Admit Problem/Dx: Admission Diagnosis/Problem Admission Diagnosis/Problem Tachycardia - History of Present Illness Initial Comments - Free Text/Narative: Patient is a 34-year-old male who presents to the emergency room with complaints of decreased appetite, cough, generalized abdominal pain and weakness. Patient is a type II diabetic and does take metformin on a daily basis. States over the past few days he has noticed he is unable to taste his food, has had a decreased appetite and he is concerned he is dehydrated as he does not want to eat or drink. He has noticed a dry nonproductive cough with subjective fever. States he has generalized abdominal pain although it is not tender. Patient denies any fever, chills, headache, change in vision, syncope or near syncope. Denies any chest pain, back pain, shortness of breath or cough. Denies any abdominal pain, nausea, vomiting, diarrhea, constipation or dysuria. Has not noted any blood in urine or stool. Patient has been eating and drinking appropriately. CTA thorax did not reveal any evidence of pulmonary embolism. There is bilateral round like airspace opacities and areas of groundless appearance. There is hepatosplenomegaly, hepatic steatosis. Patient recicved aggresive IV fluids, after which patient's heart rate continued to maintain in the 1 10-1 12 range. Given the persistent tachycardia and the patient being coronavirus positive patient was admitted for observation overnight - Related Data Allergies/Adverse Reactions: Allergies Allergy/AdvReac Type Severity Reaction Status Date / Time No Known Allergies Allergy Verified 03/03/20 04:17 Home Medications: Home Meds metFORMIN [Glucophage XR] 500 mg PO BIDMEALS 30 Days #60 tab.er 03/01/20 [Rx] Past Medical History HEENT History: Reports: Impaired Vision, Other (See Below) Other HEENT History: wears glasses Cardiovascular History: Reports: Hypertension Musculoskeletal History: Reports: SLE Endocrine/Metabolic History: Reports: Diabetes, Type II - Infectious Disease History Infectious Disease History: Reports: Chicken Pox - Past Surgical History HEENT Surgical History: Reports: None Cardiovascular Surgical History: Reports: None Social & Family History - Family History Family Medical History: Noncontributory - Tobacco Use Smoking Status *Q: Never Smoker Second Hand Smoke Exposure: No - Caffeine Use Caffeine Use: Reports: None - Recreational Drug Use Recreational Drug Use: No H&P Review of Systems - Review of Systems: Review Of Systems: See Below General: Reports: Malaise, Weakness, Fatigue. Denies: Fever, Chills Pulmonary: Denies: Shortness of Breath, Wheezing Cardiovascular: Denies: Chest Pain, Palpitations, Dyspnea on Exertion Gastrointestinal: Reports: Anorexia, Decreased Appetite, Nausea. Denies: Abdominal Pain, Diarrhea, Stool Incontinence, Vomiting Genitourinary: Denies: Dysuria, Frequency, Burning Musculoskeletal: Denies: Neck Pain, Shoulder Pain, Arm Pain Skin: Denies: Cyanosis, Jaundice, Mottled Psychiatric: Denies: Confusion, Depression, Mood Lability Neurological: Denies: Confusion, Dizziness, Headache, Numbness Exam - Exam Exam: See Below - Vital Signs Vital Signs: Last Vital Signs Temp 37.0 C 03/03/20 08:40 Pulse 114 H 03/03/20 08:40 Resp 16 03/03/20 08:40 BP 129/76 03/03/20 08:40 Pulse Ox 93 L 03/03/20 08:40 Weight: 125.645 kg - Exam General: Alert, Oriented Neck: Supple, Trachea Midline Lungs: Clear to Auscultation, Normal Respiratory Effort Cardiovascular: Regular Rhythm, Normal S1, Normal S2, Tachycardia GI/Abdominal Exam: Normal Bowel Sounds, Soft, Non-Tender - Patient Data Lab Results Last 24 hrs: Laboratory Results - last 24 hr 03/02/20 03/02/20 03/02/20 Range/Units 20:11 20:15 20:15 WBC 6.76 (4.0-11.0) K/uL RBC 5.18 (4.50-5.90) M/uL Hgb 16.2 (13.0-17.0) g/dL Hct 47.4 (38.0-50.0) % MCV 91.5 (80.0-98.0) fL MCH 31.3 (27.0-32.0) pg MCHC 34.2 (31.0-37.0) g/dL RDW Std Deviation 42.0 (28.0-62.0) fl RDW Coeff of Ray 12 (11.0-15.0) % Plt Count 126 L (150-400) K/uL MPV 9.90 (7.40-12.00) fL Neut % (Auto) 80.8 H (48.0-80.0) % Lymph % (Auto) 14.2 L (16.0-40.0) % [place] % (Auto) 4.6 (0.0-15.0) % Eos % (Auto) 0.3 (0.0-7.0) % Baso % (Auto) 0.1 (0.0-1.5) % Neut # (Auto) 5.5 (1.4-5.7) K/uL Lymph # (Auto) 1.0 (0.6-2.4) K/uL [place] # (Auto) 0.3 (0.0-0.8) K/uL Eos # (Auto) 0.0 (0.0-0.7) K/uL Baso # (Auto) 0.0 (0.0-0.1) K/uL Nucleated RBC % 0.0 /100WBC Nucleated RBCs # 0 K/uL D-Dimer, Quantitative (0.0-0.50) mg/L FEU Lactate (0.20-2.00) mmol/L Sodium 131 L (136-148) mmol/L Potassium 3.9 (3.5-5.1) mmol/L Chloride 96 L (98-107) mmol/L Carbon Dioxide 26.3 (21.0-32.0) mmol/L BUN 13 (7.0-18.0) mg/dL Creatinine 1.1 (0.8-1.3) mg/dL Est Cr Clr Drug Dosing 89.30 mL/min Estimated GFR (MDRD) > 60.0 ml/min Glucose 327 H (74-106) mg/dL POC Glucose 298 H (60-110) mg/dL Hemoglobin A1c (4.5-6.2) % Calcium 8.1 L (8.5-10.1) mg/dL Phosphorus (2.6-4.7) mg/dL Magnesium (1.8-2.4) mg/dL Total Bilirubin 0.5 (0.2-1.0) mg/dL AST 48 H (15-37) IU/L ALT 78 H (14-63) IU/L Alkaline Phosphatase 124 H (46-116) U/L Total Protein 7.2 (6.4-8.2) g/dL Albumin 3.4 (3.4-5.0) g/dL Globulin 3.8 (2.6-4.0) g/dL Albumin/Globulin Ratio 0.9 (0.9-1.6) Urine Color Urine Appearance Urine pH (5.0-8.0) Ur Specific [place] (1.001-1.035) Urine Protein (NEGATIVE) mg/dL Urine Glucose (UA) (NEGATIVE) mg/dL Urine Ketones (NEGATIVE) mg/dL Urine Occult Blood (NEGATIVE) Urine Nitrite (NEGATIVE) Urine Bilirubin (NEGATIVE) Urine Urobilinogen (<2.0) EU/dL Ur Leukocyte Esterase (NEGATIVE) Urine RBC (0-2/HPF) Urine WBC (0-5/HPF) Ur Epithelial Cells (NONE-FEW) Urine Bacteria (NEGATIVE) SARS CoV-2 RNA Rapid [place] (NEGATIVE) 03/02/20 03/02/20 03/02/20 Range/Units 20:15 20:15 20:28 WBC (4.0-11.0) K/uL RBC (4.50-5.90) M/uL Hgb (13.0-17.0) g/dL Hct (38.0-50.0) % MCV (80.0-98.0) fL MCH (27.0-32.0) pg MCHC (31.0-37.0) g/dL RDW Std Deviation (28.0-62.0) fl RDW Coeff of Ray (11.0-15.0) % Plt Count (150-400) K/uL MPV (7.40-12.00) fL Neut % (Auto) (48.0-80.0) % Lymph % (Auto) (16.0-40.0) % [place] % (Auto) (0.0-15.0) % Eos % (Auto) (0.0-7.0) % Baso % (Auto) (0.0-1.5) % Neut # (Auto) (1.4-5.7) K/uL Lymph # (Auto) (0.6-2.4) K/uL [place] # (Auto) (0.0-0.8) K/uL Eos # (Auto) (0.0-0.7) K/uL Baso # (Auto) (0.0-0.1) K/uL Nucleated RBC % /100WBC Nucleated RBCs # K/uL D-Dimer, Quantitative 0.66 H (0.0-0.50) mg/L FEU Lactate (0.20-2.00) mmol/L Sodium (136-148) mmol/L Potassium (3.5-5.1) mmol/L Chloride (98-107) mmol/L Carbon Dioxide (21.0-32.0) mmol/L BUN (7.0-18.0) mg/dL Creatinine (0.8-1.3) mg/dL Est Cr Clr Drug Dosing mL/min Estimated GFR (MDRD) ml/min Glucose (74-106) mg/dL POC Glucose (60-110) mg/dL Hemoglobin A1c 13.3 H (4.5-6.2) % Calcium (8.5-10.1) mg/dL Phosphorus (2.6-4.7) mg/dL Magnesium (1.8-2.4) mg/dL Total Bilirubin (0.2-1.0) mg/dL AST (15-37) IU/L ALT (14-63) IU/L Alkaline Phosphatase (46-116) U/L Total Protein (6.4-8.2) g/dL Albumin (3.4-5.0) g/dL Globulin (2.6-4.0) g/dL Albumin/Globulin Ratio (0.9-1.6) Urine Color YELLOW Urine Appearance CLEAR Urine pH 5.5 (5.0-8.0) Ur Specific [place] >= 1.030 (1.001-1.035) Urine Protein 30 H (NEGATIVE) mg/dL Urine Glucose (UA) 500 H (NEGATIVE) mg/dL Urine Ketones 15 H (NEGATIVE) mg/dL Urine Occult Blood TRACE-INTACT H (NEGATIVE) Urine Nitrite NEGATIVE (NEGATIVE) Urine Bilirubin NEGATIVE (NEGATIVE) Urine Urobilinogen 0.2 (<2.0) EU/dL Ur Leukocyte Esterase NEGATIVE (NEGATIVE) Urine RBC 0-2 (0-2/HPF) Urine WBC 0-1 (0-5/HPF) Ur Epithelial Cells RARE (NONE-FEW) Urine Bacteria RARE (NEGATIVE) SARS CoV-2 RNA Rapid [place] (NEGATIVE) 03/02/20 03/02/20 03/03/20 Range/Units 20:30 20:49 06:00 WBC 5.91 (4.0-11.0) K/uL RBC 4.76 (4.50-5.90) M/uL Hgb 14.6 (13.0-17.0) g/dL Hct 43.9 (38.0-50.0) % MCV 92.2 (80.0-98.0) fL MCH 30.7 (27.0-32.0) pg MCHC 33.3 (31.0-37.0) g/dL RDW Std Deviation 42.4 (28.0-62.0) fl RDW Coeff of Ray 13 (11.0-15.0) % Plt Count 126 L (150-400) K/uL MPV 9.80 (7.40-12.00) fL Neut % (Auto) 75.9 (48.0-80.0) % Lymph % (Auto) 19.5 (16.0-40.0) % [place] % (Auto) 4.1 (0.0-15.0) % Eos % (Auto) 0.2 (0.0-7.0) % Baso % (Auto) 0.3 (0.0-1.5) % Neut # (Auto) 4.5 (1.4-5.7) K/uL Lymph # (Auto) 1.2 (0.6-2.4) K/uL [place] # (Auto) 0.2 (0.0-0.8) K/uL Eos # (Auto) 0.0 (0.0-0.7) K/uL Baso # (Auto) 0.0 (0.0-0.1) K/uL Nucleated RBC % 0.0 /100WBC Nucleated RBCs # 0 K/uL D-Dimer, Quantitative (0.0-0.50) mg/L FEU Lactate 1.5 (0.20-2.00) mmol/L Sodium (136-148) mmol/L Potassium (3.5-5.1) mmol/L Chloride (98-107) mmol/L Carbon Dioxide (21.0-32.0) mmol/L BUN (7.0-18.0) mg/dL Creatinine (0.8-1.3) mg/dL Est Cr Clr Drug Dosing mL/min Estimated GFR (MDRD) ml/min Glucose (74-106) mg/dL POC Glucose (60-110) mg/dL Hemoglobin A1c (4.5-6.2) % Calcium (8.5-10.1) mg/dL Phosphorus (2.6-4.7) mg/dL Magnesium (1.8-2.4) mg/dL Total Bilirubin (0.2-1.0) mg/dL AST (15-37) IU/L ALT (14-63) IU/L Alkaline Phosphatase (46-116) U/L Total Protein (6.4-8.2) g/dL Albumin (3.4-5.0) g/dL Globulin (2.6-4.0) g/dL Albumin/Globulin Ratio (0.9-1.6) Urine Color Urine Appearance Urine pH (5.0-8.0) Ur Specific [place] (1.001-1.035) Urine Protein (NEGATIVE) mg/dL Urine Glucose (UA) (NEGATIVE) mg/dL Urine Ketones (NEGATIVE) mg/dL Urine Occult Blood (NEGATIVE) Urine Nitrite (NEGATIVE) Urine Bilirubin (NEGATIVE) Urine Urobilinogen (<2.0) EU/dL Ur Leukocyte Esterase (NEGATIVE) Urine RBC (0-2/HPF) Urine WBC (0-5/HPF) Ur Epithelial Cells (NONE-FEW) Urine Bacteria (NEGATIVE) SARS CoV-2 RNA Rapid [place] POSITIVE H (NEGATIVE) 03/03/20 03/03/20 Range/Units 06:00 06:31 WBC (4.0-11.0) K/uL RBC (4.50-5.90) M/uL Hgb (13.0-17.0) g/dL Hct (38.0-50.0) % MCV (80.0-98.0) fL MCH (27.0-32.0) pg MCHC (31.0-37.0) g/dL RDW Std Deviation (28.0-62.0) fl RDW Coeff of Ray (11.0-15.0) % Plt Count (150-400) K/uL MPV (7.40-12.00) fL Neut % (Auto) (48.0-80.0) % Lymph % (Auto) (16.0-40.0) % [place] % (Auto) (0.0-15.0) % Eos % (Auto) (0.0-7.0) % Baso % (Auto) (0.0-1.5) % Neut # (Auto) (1.4-5.7) K/uL Lymph # (Auto) (0.6-2.4) K/uL [place] # (Auto) (0.0-0.8) K/uL Eos # (Auto) (0.0-0.7) K/uL Baso # (Auto) (0.0-0.1) K/uL Nucleated RBC % /100WBC Nucleated RBCs # K/uL D-Dimer, Quantitative (0.0-0.50) mg/L FEU Lactate (0.20-2.00) mmol/L Sodium 133 L (136-148) mmol/L Potassium 4.1 (3.5-5.1) mmol/L Chloride 100 (98-107) mmol/L Carbon Dioxide 23.1 (21.0-32.0) mmol/L BUN 10 (7.0-18.0) mg/dL Creatinine 1.0 (0.8-1.3) mg/dL Est Cr Clr Drug Dosing 98.23 mL/min Estimated GFR (MDRD) > 60.0 ml/min Glucose 322 H (74-106) mg/dL POC Glucose 296 H (60-110) mg/dL Hemoglobin A1c (4.5-6.2) % Calcium 7.6 L (8.5-10.1) mg/dL Phosphorus 2.5 L (2.6-4.7) mg/dL Magnesium 1.5 L (1.8-2.4) mg/dL Total Bilirubin (0.2-1.0) mg/dL AST (15-37) IU/L ALT (14-63) IU/L Alkaline Phosphatase (46-116) U/L Total Protein (6.4-8.2) g/dL Albumin (3.4-5.0) g/dL Globulin (2.6-4.0) g/dL Albumin/Globulin Ratio (0.9-1.6) Urine Color Urine Appearance Urine pH (5.0-8.0) Ur Specific [place] (1.001-1.035) Urine Protein (NEGATIVE) mg/dL Urine Glucose (UA) (NEGATIVE) mg/dL Urine Ketones (NEGATIVE) mg/dL Urine Occult Blood (NEGATIVE) Urine Nitrite (NEGATIVE) Urine Bilirubin (NEGATIVE) Urine Urobilinogen (<2.0) EU/dL Ur Leukocyte Esterase (NEGATIVE) Urine RBC (0-2/HPF) Urine WBC (0-5/HPF) Ur Epithelial Cells (NONE-FEW) Urine Bacteria (NEGATIVE) SARS CoV-2 RNA Rapid [place] (NEGATIVE) Result Diagrams: 03/03/20 06:00 03/03/20 06:00 Sepsis Event Note - Evaluation Sepsis Screening Result: No Definite Risk - Focused Exam Vital Signs: Vital Signs Temp Pulse Resp BP Pulse Ox 03/03/20 08:40 37.0 C 114 H 16 129/76 93 L 03/03/20 01:30 37.3 C 110 H 17 138/79 95 03/03/20 00:50 112 H 22 H 163/74 H 97 03/03/20 00:09 110 H 159/99 H 97 03/02/20 23:25 110 H 18 152/91 H 97 03/02/20 22:45 117 H 18 146/94 H 96 03/02/20 21:39 113 H 20 152/90 H 97 - Problem List (1) Tachycardia SNOMED Code(s): 6601216 ICD Code: R00.0 - TACHYCARDIA, UNSPECIFIED Status: Acute Current Visit: Yes (2) COVID-19 SNOMED Code(s): 943399554 ICD Code: U07.1 - COVID-19 Status: Acute Current Visit: Yes (3) Dehydration SNOMED Code(s): 66522088 ICD Code: E86.0 - DEHYDRATION Status: Acute Current Visit: No (4) Uncontrolled diabetes mellitus SNOMED Code(s): 23855809, 116086958 ICD Code: E11.65 - TYPE 2 DIABETES MELLITUS WITH HYPERGLYCEMIA Status: Acute Current Visit: No Problem List Initiated/Reviewed/Updated: Yes Orders Last 24hrs: Active Orders 24 hr Category Date Time Status Admission Status [Patient Status] [ADT] Stat ADT 03/03/20 00:24 Active Accu Check [Blood Glucose Check, Bedside] [RC] TIDAC Care 03/03/20 06:01 Active Ambulate [RC] ASDIRECTED Care 03/03/20 00:52 Active Antiembolic Devices [RC] PER UNIT ROUTINE Care 03/03/20 00:51 Active Blood Glucose Check, Bedside [RC] ONETIME Care 03/02/20 20:07 Active EKG Documentation Completion [RC] STAT Care 03/02/20 20:15 Active Oxygen Therapy [RC] ASDIRECTED Care 03/03/20 00:45 Active RT Post Treatment Assessment [RC] Click to Edit Care 03/03/20 00:53 Active RT Pre-Treatment Assessment [RC] Click to Edit Care 03/03/20 00:53 Active Telemetry Monitoring [Cardiac Monitoring] [RC] . Care 03/03/20 00:44 Active DIRECTED Vital Signs [RC] Q4H Care 03/03/20 00:44 Active [employer] Diet [DIET] Diet 03/03/20 Breakfast Active CORONAVIRUS COVID-19 PCR PHL Stat Lab 03/02/20 21:38 Ordered Acetaminophen [Tylenol Extra Strength] Med 03/03/20 00:53 Active 500 mg PO Q6H PRN Albuterol/Ipratropium [Combivent Respimat] Med 03/03/20 00:52 Active See Dose Instructions INH Q4H PRN Insulin Aspart [NovoLOG] Med 03/03/20 07:30 Active See Protocol SUBCUT TIDAC Lactated Ringers [Ringers, Lactated] 1,000 ml Med 03/03/20 01:00 Active IV ASDIRECTED Ondansetron [Zofran] Med 03/03/20 00:47 Active 4 mg IVPUSH Q4H PRN Pantoprazole [ProTONIX IV] 40 mg Med 03/03/20 01:00 Active Sodium Chloride 0.9% [Normal Saline] 10 ml IV DAILY SCD [Sequential Compression Device] [OM.PC] Routine Oth 03/03/20 00:51 Ordered Medication Orders Acetaminophen (Tylenol Extra Strength) 500 mg PO Q6H PRN PRN Reason: Pain Albuterol/Ipratropium (Combivent Respimat) 0 gm INH Q4H PRN PRN Reason: Shortness of Breath Lactated Ringer's (Ringers, Lactated) 1,000 mls @ 125 mls/hr IV ASDIRECTED PAPI Last Admin: 03/03/20 01:34 Dose: 125 mls/hr Documented by: MICHELLE Pantoprazole Sodium 40 mg/ (Sodium Chloride) 10 mls @ 300 mls/hr IV DAILY [facility] Last Admin: 03/03/20 01:33 Dose: 300 mls/hr Documented by: MICHELLE Insulin Aspart (Novolog) 0 unit SUBCUT TIDAC [facility]; Protocol Last Admin: 03/03/20 07:28 Dose: 6 units Documented by: MICHELLE Ondansetron HCl (Zofran) 4 mg IVPUSH Q4H PRN PRN Reason: Nausea/Vomiting Assessment/Plan Comment:: 34 y/o M admitted for persistent tachycardia, dehydration cont IV fluids Currrebtly on room air DuoNebs as needed Blood sugars uncontrolled, cont SSI possible dc later if tachycardia resolves Need better outpatient management of his DM
[2020-03-03] MEDS ORDERED: Lactated Ringers 1,000 ML IV ONE (08:49)
[2020-03-03] MEDS ORDERED: Magnesium Sulfate/Water 4 GM in Premix Bag 1 BAG IV ONE (08:50)
[2020-03-03] MEDS ORDERED: Phosphorus #1 250 MG Tab PO SCH (12:00)
--- NOTE | 2020-03-03 13:01 | PCM.DCSUM1 ---
Discharge Summary - Hospital Course Free Text/Narrative:: Patient is a 34-year-old male who presents to the emergency room with complaints of decreased appetite, cough, generalized abdominal pain and weakness. Patient is a type II diabetic and does take metformin on a daily basis. States over the past few days he has noticed he is unable to taste his food, has had a decreased appetite and he is concerned he is dehydrated as he does not want to eat or drink. He has noticed a dry nonproductive cough with subjective fever. States he has generalized abdominal pain although it is not tender. Patient denies any fever, chills, headache, change in vision, syncope or near syncope. Denies any chest pain, back pain, shortness of breath or cough. Denies any abdominal pain, nausea, vomiting, diarrhea, constipation or dysuria. Has not noted any blood in urine or stool. Patient has been eating and drinking appropriately. CTA thorax did not reveal any evidence of pulmonary embolism. There is bilateral round like airspace opacities and areas of groundless appearance. There is hepatosplenomegaly, hepatic steatosis. Patient received aggressive IV fluids, after which patient's heart rate continued to maintain in the 1 10-1 12 range. Given the persistent tachycardia and the patient being coronavirus positive patient was admitted for observation overnight. Overnight patients IV fluids were continued, he was feeling much better in AM. tele was unremarkable, no chest pain, sob. His labs reveled uncontrolled dm, HLD, was started on insulin, atorvastatin and lisinopril. Patient was educated in detail about making lifestyle changes, he was medically stable for dc next day and recommended to fu with his pcp. - Discharge Data Discharge Date: 03/03/20 Discharge Disposition: Home, Self-Care 01 Condition: Fair - Referral to Home Health Primary Care Physician: PCP None - Discharge Diagnosis/Problem(s) (1) Tachycardia SNOMED Code(s): 9696886 ICD Code: R00.0 - TACHYCARDIA, UNSPECIFIED Status: Acute (2) COVID-19 SNOMED Code(s): 535473185 ICD Code: U07.1 - COVID-19 Status: Acute (3) Dehydration SNOMED Code(s): 06372632 ICD Code: E86.0 - DEHYDRATION Status: Acute (4) Uncontrolled diabetes mellitus SNOMED Code(s): 87642706, 228267618 ICD Code: E11.65 - TYPE 2 DIABETES MELLITUS WITH HYPERGLYCEMIA Status: Acute - Patient Summary/Data Consults: Consultations 03/03/20 12:58 Consult to [facility] [Consult to Diabetic Nurse Specialist] [CONS] Routine - Discharge Plan *PRESCRIPTION DRUG MONITORING PROGRAM REVIEWED*: No *COPY OF PRESCRIPTION DRUG MONITORING REPORT IN PATIENT JANETH: No Prescriptions/Med Rec: Insulin Detemir [Levemir] 15 unit SUBCUT BEDTIME #1 pen atorvaSTATin [Lipitor] 10 mg PO BEDTIME #30 tab lisinopriL [Lisinopril] 10 mg PO DAILY #30 tablet Insulin Aspart [NovoLOG] 5 unit SUBCUT TIDAC #1 pen Acetaminophen [Tylenol Extra Strength] 500 mg PO Q6H PRN #30 tablet PRN Reason: Pain Home Medications: Home Meds metFORMIN [Glucophage XR] 500 mg PO BIDMEALS 30 Days #60 tab.er 03/01/20 [Rx] Acetaminophen [Tylenol Extra Strength] 500 mg PO Q6H PRN #30 tablet 03/03/20 [Rx] Insulin Aspart [NovoLOG] 5 unit SUBCUT TIDAC #1 pen 03/03/20 [Rx] Insulin Detemir [Levemir] 15 unit SUBCUT BEDTIME #1 pen 03/03/20 [Rx] atorvaSTATin [Lipitor] 10 mg PO BEDTIME #30 tab 03/03/20 [Rx] lisinopriL [Lisinopril] 10 mg PO DAILY #30 tablet 03/03/20 [Rx] Patient Handouts: COVID-19 Frequently Asked Questions, Insulin Aspart injection, COVID-19, Acetaminophen; Oxycodone capsules, COVID-19: How to Protect Yourself and Others - [facility], Insulin Detemir injection, Coronavirus Information 08/15/19, Prevent the Spread of COVID-19 if You Are Sick - CDC - Discharge Summary/Plan Comment DC Time >30 min.: No - Patient Data Vitals - Most Recent: Last Vital Signs Temp 37.4 C 03/03/20 12:47 Pulse 103 H 03/03/20 12:47 Resp 16 03/03/20 12:47 BP 145/74 H 03/03/20 12:47 Pulse Ox 95 03/03/20 12:47 Weight - Most Recent: 125.645 kg I&O - Last 24 hours: Intake & Output 1003/03/20 03/03/20 22:59 06:59 14:59 Intake Total 300 Output Total 950 600 Balance -650 -600 Lab Results - Last 24 hrs: Laboratory Results - last 24 hr 03/02/20 03/02/20 03/02/20 Range/Units 20:11 20:15 20:15 WBC 6.76 (4.0-11.0) K/uL RBC 5.18 (4.50-5.90) M/uL Hgb 16.2 (13.0-17.0) g/dL Hct 47.4 (38.0-50.0) % MCV 91.5 (80.0-98.0) fL MCH 31.3 (27.0-32.0) pg MCHC 34.2 (31.0-37.0) g/dL RDW Std Deviation 42.0 (28.0-62.0) fl RDW Coeff of Ray 12 (11.0-15.0) % Plt Count 126 L (150-400) K/uL MPV 9.90 (7.40-12.00) fL Neut % (Auto) 80.8 H (48.0-80.0) % Lymph % (Auto) 14.2 L (16.0-40.0) % [place] % (Auto) 4.6 (0.0-15.0) % Eos % (Auto) 0.3 (0.0-7.0) % Baso % (Auto) 0.1 (0.0-1.5) % Neut # (Auto) 5.5 (1.4-5.7) K/uL Lymph # (Auto) 1.0 (0.6-2.4) K/uL Monroe # (Auto) 0.3 (0.0-0.8) K/uL Eos # (Auto) 0.0 (0.0-0.7) K/uL Baso # (Auto) 0.0 (0.0-0.1) K/uL Nucleated RBC % 0.0 /100WBC Nucleated RBCs # 0 K/uL D-Dimer, Quantitative (0.0-0.50) mg/L FEU Lactate (0.20-2.00) mmol/L Sodium 131 L (136-148) mmol/L Potassium 3.9 (3.5-5.1) mmol/L Chloride 96 L (98-107) mmol/L Carbon Dioxide 26.3 (21.0-32.0) mmol/L BUN 13 (7.0-18.0) mg/dL Creatinine 1.1 (0.8-1.3) mg/dL Est Cr Clr Drug Dosing 89.30 mL/min Estimated GFR (MDRD) > 60.0 ml/min Glucose 327 H (74-106) mg/dL POC Glucose 298 H (60-110) mg/dL Hemoglobin A1c (4.5-6.2) % Calcium 8.1 L (8.5-10.1) mg/dL Phosphorus (2.6-4.7) mg/dL Magnesium (1.8-2.4) mg/dL Total Bilirubin 0.5 (0.2-1.0) mg/dL AST 48 H (15-37) IU/L ALT 78 H (14-63) IU/L Alkaline Phosphatase 124 H (46-116) U/L Total Protein 7.2 (6.4-8.2) g/dL Albumin 3.4 (3.4-5.0) g/dL Globulin 3.8 (2.6-4.0) g/dL Albumin/Globulin Ratio 0.9 (0.9-1.6) Urine Color Urine Appearance Urine pH (5.0-8.0) Ur Specific [place] (1.001-1.035) Urine Protein (NEGATIVE) mg/dL Urine Glucose (UA) (NEGATIVE) mg/dL Urine Ketones (NEGATIVE) mg/dL Urine Occult Blood (NEGATIVE) Urine Nitrite (NEGATIVE) Urine Bilirubin (NEGATIVE) Urine Urobilinogen (<2.0) EU/dL Ur Leukocyte Esterase (NEGATIVE) Urine RBC (0-2/HPF) Urine WBC (0-5/HPF) Ur Epithelial Cells (NONE-FEW) Urine Bacteria (NEGATIVE) SARS CoV-2 RNA Rapid PEYTON (NEGATIVE) 03/02/20 03/02/20 03/02/20 Range/Units 20:15 20:15 20:28 WBC (4.0-11.0) K/uL RBC (4.50-5.90) M/uL Hgb (13.0-17.0) g/dL Hct (38.0-50.0) % MCV (80.0-98.0) fL MCH (27.0-32.0) pg MCHC (31.0-37.0) g/dL RDW Std Deviation (28.0-62.0) fl RDW Coeff of Ray (11.0-15.0) % Plt Count (150-400) K/uL MPV (7.40-12.00) fL Neut % (Auto) (48.0-80.0) % Lymph % (Auto) (16.0-40.0) % [place] % (Auto) (0.0-15.0) % Eos % (Auto) (0.0-7.0) % Baso % (Auto) (0.0-1.5) % Neut # (Auto) (1.4-5.7) K/uL Lymph # (Auto) (0.6-2.4) K/uL Monroe # (Auto) (0.0-0.8) K/uL Eos # (Auto) (0.0-0.7) K/uL Baso # (Auto) (0.0-0.1) K/uL Nucleated RBC % /100WBC Nucleated RBCs # K/uL D-Dimer, Quantitative 0.66 H (0.0-0.50) mg/L FEU Lactate (0.20-2.00) mmol/L Sodium (136-148) mmol/L Potassium (3.5-5.1) mmol/L Chloride (98-107) mmol/L Carbon Dioxide (21.0-32.0) mmol/L BUN (7.0-18.0) mg/dL Creatinine (0.8-1.3) mg/dL Est Cr Clr Drug Dosing mL/min Estimated GFR (MDRD) ml/min Glucose (74-106) mg/dL POC Glucose (60-110) mg/dL Hemoglobin A1c 13.3 H (4.5-6.2) % Calcium (8.5-10.1) mg/dL Phosphorus (2.6-4.7) mg/dL Magnesium (1.8-2.4) mg/dL Total Bilirubin (0.2-1.0) mg/dL AST (15-37) IU/L ALT (14-63) IU/L Alkaline Phosphatase (46-116) U/L Total Protein (6.4-8.2) g/dL Albumin (3.4-5.0) g/dL Globulin (2.6-4.0) g/dL Albumin/Globulin Ratio (0.9-1.6) Urine Color YELLOW Urine Appearance CLEAR Urine pH 5.5 (5.0-8.0) Ur Specific [place] >= 1.030 (1.001-1.035) Urine Protein 30 H (NEGATIVE) mg/dL Urine Glucose (UA) 500 H (NEGATIVE) mg/dL Urine Ketones 15 H (NEGATIVE) mg/dL Urine Occult Blood TRACE-INTACT H (NEGATIVE) Urine Nitrite NEGATIVE (NEGATIVE) Urine Bilirubin NEGATIVE (NEGATIVE) Urine Urobilinogen 0.2 (<2.0) EU/dL Ur Leukocyte Esterase NEGATIVE (NEGATIVE) Urine RBC 0-2 (0-2/HPF) Urine WBC 0-1 (0-5/HPF) Ur Epithelial Cells RARE (NONE-FEW) Urine Bacteria RARE (NEGATIVE) SARS CoV-2 RNA Rapid PE[place]TON (NEGATIVE) 03/02/20 03/02/20 03/03/20 Range/Units 20:30 20:49 06:00 WBC 5.91 (4.0-11.0) K/uL RBC 4.76 (4.50-5.90) M/uL Hgb 14.6 (13.0-17.0) g/dL Hct 43.9 (38.0-50.0) % MCV 92.2 (80.0-98.0) fL MCH 30.7 (27.0-32.0) pg MCHC 33.3 (31.0-37.0) g/dL RDW Std Deviation 42.4 (28.0-62.0) fl RDW Coeff of Ray 13 (11.0-15.0) % Plt Count 126 L (150-400) K/uL MPV 9.80 (7.40-12.00) fL Neut % (Auto) 75.9 (48.0-80.0) % Lymph % (Auto) 19.5 (16.0-40.0) % [place] % (Auto) 4.1 (0.0-15.0) % Eos % (Auto) 0.2 (0.0-7.0) % Baso % (Auto) 0.3 (0.0-1.5) % Neut # (Auto) 4.5 (1.4-5.7) K/uL Lymph # (Auto) 1.2 (0.6-2.4) K/uL Monroe # (Auto) 0.2 (0.0-0.8) K/uL Eos # (Auto) 0.0 (0.0-0.7) K/uL Baso # (Auto) 0.0 (0.0-0.1) K/uL Nucleated RBC % 0.0 /100WBC Nucleated RBCs # 0 K/uL D-Dimer, Quantitative (0.0-0.50) mg/L FEU Lactate 1.5 (0.20-2.00) mmol/L Sodium (136-148) mmol/L Potassium (3.5-5.1) mmol/L Chloride (98-107) mmol/L Carbon Dioxide (21.0-32.0) mmol/L BUN (7.0-18.0) mg/dL Creatinine (0.8-1.3) mg/dL Est Cr Clr Drug Dosing mL/min Estimated GFR (MDRD) ml/min Glucose (74-106) mg/dL POC Glucose (60-110) mg/dL Hemoglobin A1c (4.5-6.2) % Calcium (8.5-10.1) mg/dL Phosphorus (2.6-4.7) mg/dL Magnesium (1.8-2.4) mg/dL Total Bilirubin (0.2-1.0) mg/dL AST (15-37) IU/L ALT (14-63) IU/L Alkaline Phosphatase (46-116) U/L Total Protein (6.4-8.2) g/dL Albumin (3.4-5.0) g/dL Globulin (2.6-4.0) g/dL Albumin/Globulin Ratio (0.9-1.6) Urine Color Urine Appearance Urine pH (5.0-8.0) Ur Specific [place] (1.001-1.035) Urine Protein (NEGATIVE) mg/dL Urine Glucose (UA) (NEGATIVE) mg/dL Urine Ketones (NEGATIVE) mg/dL Urine Occult Blood (NEGATIVE) Urine Nitrite (NEGATIVE) Urine Bilirubin (NEGATIVE) Urine Urobilinogen (<2.0) EU/dL Ur Leukocyte Esterase (NEGATIVE) Urine RBC (0-2/HPF) Urine WBC (0-5/HPF) Ur Epithelial Cells (NONE-FEW) Urine Bacteria (NEGATIVE) SARS CoV-2 RNA Rapid PE[place] POSITIVE H (NEGATIVE) 03/03/20 03/03/20 03/03/20 Range/Units 06:00 06:31 12:41 WBC (4.0-11.0) K/uL RBC (4.50-5.90) M/uL Hgb (13.0-17.0) g/dL Hct (38.0-50.0) % MCV (80.0-98.0) fL MCH (27.0-32.0) pg MCHC (31.0-37.0) g/dL RDW Std Deviation (28.0-62.0) fl RDW Coeff of Ray (11.0-15.0) % Plt Count (150-400) K/uL MPV (7.40-12.00) fL Neut % (Auto) (48.0-80.0) % Lymph % (Auto) (16.0-40.0) % [place] % (Auto) (0.0-15.0) % Eos % (Auto) (0.0-7.0) % Baso % (Auto) (0.0-1.5) % Neut # (Auto) (1.4-5.7) K/uL Lymph # (Auto) (0.6-2.4) K/uL Monroe # (Auto) (0.0-0.8) K/uL Eos # (Auto) (0.0-0.7) K/uL Baso # (Auto) (0.0-0.1) K/uL Nucleated RBC % /100WBC Nucleated RBCs # K/uL D-Dimer, Quantitative (0.0-0.50) mg/L FEU Lactate (0.20-2.00) mmol/L Sodium 133 L (136-148) mmol/L Potassium 4.1 (3.5-5.1) mmol/L Chloride 100 (98-107) mmol/L Carbon Dioxide 23.1 (21.0-32.0) mmol/L BUN 10 (7.0-18.0) mg/dL Creatinine 1.0 (0.8-1.3) mg/dL Est Cr Clr Drug Dosing 98.23 mL/min Estimated GFR (MDRD) > 60.0 ml/min Glucose 322 H (74-106) mg/dL POC Glucose 296 H 269 H (60-110) mg/dL Hemoglobin A1c (4.5-6.2) % Calcium 7.6 L (8.5-10.1) mg/dL Phosphorus 2.5 L (2.6-4.7) mg/dL Magnesium 1.5 L (1.8-2.4) mg/dL Total Bilirubin (0.2-1.0) mg/dL AST (15-37) IU/L ALT (14-63) IU/L Alkaline Phosphatase (46-116) U/L Total Protein (6.4-8.2) g/dL Albumin (3.4-5.0) g/dL Globulin (2.6-4.0) g/dL Albumin/Globulin Ratio (0.9-1.6) Urine Color Urine Appearance Urine pH (5.0-8.0) Ur Specific [place] (1.001-1.035) Urine Protein (NEGATIVE) mg/dL Urine Glucose (UA) (NEGATIVE) mg/dL Urine Ketones (NEGATIVE) mg/dL Urine Occult Blood (NEGATIVE) Urine Nitrite (NEGATIVE) Urine Bilirubin (NEGATIVE) Urine Urobilinogen (<2.0) EU/dL Ur Leukocyte Esterase (NEGATIVE) Urine RBC (0-2/HPF) Urine WBC (0-5/HPF) Ur Epithelial Cells (NONE-FEW) Urine Bacteria (NEGATIVE) SARS CoV-2 RNA Rapid PEYTON (NEGATIVE) Med Orders - Current: Current Medications Acetaminophen (Tylenol Extra Strength) 500 mg PO Q6H PRN PRN Reason: Pain Albuterol/Ipratropium (Combivent Respimat) 0 gm INH Q4H PRN PRN Reason: Shortness of Breath Lactated Ringer's (Ringers, Lactated) 1,000 mls @ 125 mls/hr IV ASDIRECTED [facility] Last Admin: 03/03/20 10:28 Dose: 125 mls/hr Documented by: Pantoprazole Sodium 40 mg/ (Sodium Chloride) 10 mls @ 300 mls/hr IV DAILY [facility] Insulin Aspart (Novolog) 0 unit SUBCUT TIDAC [facility]; Protocol Last Admin: 03/03/20 12:44 Dose: 6 units Documented by: Insulin Detemir (Levemir) 15 unit SUBCUT BEDTIME [facility] Ondansetron HCl (Zofran) 4 mg IVPUSH Q4H PRN PRN Reason: Nausea/Vomiting Sodium Phosphate (Neutra-Phos) 250 mg PO QID PAPI Stop: 03/04/20 09:00 Discontinued Medications Sodium Chloride (Normal Saline) 1,000 mls @ 999 mls/hr IV STAT ONE Stop: 03/02/20 21:15 Last Admin: 03/02/20 20:18 Dose: 999 mls/hr Documented by: Sodium Chloride (Normal Saline) 1,000 mls @ 999 mls/hr IV STAT ONE Stop: 03/02/20 22:03 Last Admin: 03/03/20 03:58 Dose: Not Given Documented by: Sodium Chloride (Normal Saline) 1,000 mls @ 999 mls/hr IV .Bolus ONE Stop: 03/02/20 23:19 Last Admin: 03/02/20 22:50 Dose: 999 mls/hr Documented by: Sodium Chloride (Normal Saline) 1,000 mls @ 999 mls/hr IV .Bolus ONE Stop: 03/03/20 00:54 Last Admin: 03/03/20 00:01 Dose: 999 mls/hr Documented by: Pantoprazole Sodium 40 mg/ (Sodium Chloride) 10 mls @ 300 mls/hr IV DAILY [facility] Last Admin: 03/03/20 01:33 Dose: 300 mls/hr Documented by: Lactated Ringer's (Ringers, Lactated) 1,000 mls @ 999 mls/hr IV .BOLUS ONE Stop: 03/03/20 09:49 Last Admin: 03/03/20 09:21 Dose: 999 mls/hr Documented by: Magnesium Sulfate 4 gm/ Premix 100 mls @ 33.333 mls/hr IV ONETIME ONE Stop: 03/03/20 11:49 Last Admin: 03/03/20 09:22 Dose: 33.333 mls/hr Documented by: Iopamidol (Isovue-370 (76%)) 100 ml IVPUSH ONETIME STA Stop: 03/02/20 22:29 Last Admin: 03/02/20 22:29 Dose: 100 ml Documented by:
[2020-03-03] MEDS: Pantoprazole 40 MG in Sodium Chloride 0.9% 10 ML IV SCH ×2 (13:05→13:10)
[2020-03-03] MEDS ORDERED: Insulin Detemir 100 Units/ML 3 ML Pen SUBCUT SCH (21:00)
== END 2020-03-03 16:05 | disposition home or self-care (01) ==
LOC: MW.ED 19:59 → MW.MS 03-03 00:24
PROVIDERS: ADMIT Student in an Organized Health Care Education/Training Program; ATTEND Student in an Organized Health Care Education/Training Program
DX: R00.0 Tachycardia, unspecified (principal); U07.1 COVID-19; I10 Essential (primary) hypertension; E11.65 Type 2 diabetes mellitus with hyperglycemia; E86.0 Dehydration; Z79.84 Long term (current) use of oral hypoglycemic drugs; Z79.899 Other long term (current) drug therapy
CPT/HCPCS: 36415; 71045; 71275; 80048; 80053; 80061; 81001; 82962; 83036; 83605; 83735; 84100; 85025; 85379; 87635; 93005; A9270; C9113; J1815; J3475; J7030; J7050; J7120; Q9967; 96360; 96361; 96365; 96366; 96375; 96376; 99235; 99283; 99285-25; G0378; U0002